=== PATIENT | male | born 1970 | race Caucasian/White ===

== ENCOUNTER 2020-05-13 00:42 | Emergency (ER) | payer OTHER, SELFPAY ==
[2020-05-13 00:54] VITALS: PULSE 64; RESP 16; TEMP 36.6; O2SAT 96; BMI 41.5
--- NOTE | 2020-05-13 01:11 | W.ED.NECK ---
HPI - Neck Pain/Injury General: Chief Complaint: Neck Pain/Injury Stated Complaint: high bp; left arm pain Time Seen by Provider: 05/13/20 00:51 History of Present Illness: HPI Narrative: Patient is a 49-year-old male who comes to the ED with high blood pressure and left shoulder pain. Patient has a past medical history of hypertension and hypercholesteremia. Patient says 3 days ago he started having some pain that started in the upper back that was radiating into his left shoulder and down into his left upper arm. Patient says he woke up with this pain and it has since progressed. He has never had any pain like this in the past. He has taken a dose of ibuprofen yesterday for the shoulder pain with minimal improvement. Patient says when he places his left arm above his head he upper back and left shoulder pain improves. He also describes having some mild midsternal pleuritic chest pain today. Denies any injury, trauma to cause onset of pain. Patient checked his blood pressure at home and it was elevated. He was concerned that this could be a sign of some cardiac cause so he decided to come to the ED to be evaluated. Denies any nausea/vomiting, abdominal pain, bladder or bowel symptoms. Associated symptoms: Denies headache(s) or nausea Review of Systems Const: Denies: fever(s), chills or fatigue Eyes: Denies: change in vision or eye discomfort ENMT: Denies: throat pain, odynophagia, nasal discharge or nasal congestion Card: Reports: chest pain (pleuritic); Denies: palpitations, edema, swelling of feet/ankles, dyspnea on exertion or orthopnea Resp: Denies: dyspnea, productive cough or non-productive cough GI: Denies: abdominal pain, nausea, vomiting, diarrhea, constipation or hematochezia : Denies: flank pain, difficulty urinating, dysuria or hematuria Musc: Reports: back pain (Left side of upper back) and extremity pain (Pain into the left shoulder and down into left upper arm.); Denies: neck pain or extremity swelling Skin/Breast: Denies: rash or new lesions Neuro: Denies: headache(s), numbness in extremities or weakness in extremities Physical Exam Const: COMMON NORMALS: no acute distress, patient oriented x3, healthy appearing and alert GENERAL APPEARANCE: cooperative and comfortable NUTRITIONAL APPEARANCE: overweight HENMT: COMMON NORMALS: normocephalic HEAD & SCALP: normocephalic MOUTH: Normal oral and palatal mucosa present THROAT: posterior oropharynx normal and uvula midline Eye: COMMON NORMALS: Equal, round and reactive pupils present PUPIL: Yes Equal, round and reactive pupils present Neck/C-Spine: COMMON NORMALS: supple GENERAL: Yes normal visual inspection Resp: COMMON NORMALS: normal respiratory effort, No retractions, No use of accessory muscles and clear to auscultation bilaterally EFFORT & INSPECTION: Yes able to speak in complete sentences AUSCULTATION: clear to auscultation bilaterally Cardio: COMMON NORMALS: regular rate, regular rhythm, S1 normal heart sound present, S2 normal heart sound present, No gallops present (Cardio), No clicks present (Cardio), No murmurs present (Cardio) and Peripheral pulses 2+ throughout RATE: regular rate RHYTHM: regular rhythm HEART SOUNDS: S1 normal heart sound present and S2 normal heart sound present PERIPHERAL PULSES: Peripheral pulses 2+ throughout GI: COMMON NORMALS: Normal to inspection, nondistended, normoactive bowel sounds present, Soft to palpation, non-tender and no masses PALPATION: Yes Soft to palpation : COMMON NORMALS: Yes no CVA tenderness BLADDER/KIDNEY EXAM: Yes no CVA tenderness Back/Pelvis: COMMON NORMALS: no CVA tenderness THORACIC SPINE/UPPER BACK: Yes paraspinal muscle tenderness Extremity: COMMON NORMALS: normal to inspection, capillary refill normal and no pedal edema Neuro: COMMON NORMALS: patient oriented x3 and moves all extremities SENSORIUM/ORIENTATION: Yes alert Skin: COMMON NORMALS: no rashes or lesions noted GENERAL SKIN EXAM: no rashes or lesions noted and dry skin Course ED course: Heart score-2 (low risk) Vital Signs: Vital signs: Vital Signs Temperature 97.9 F 05/13/20 00:54 Pulse Rate 64 05/13/20 02:24 Respiratory Rate 16 05/13/20 02:24 Blood Pressure 142/99 05/13/20 02:24 Pulse Oximetry 94 05/13/20 02:24 MDM - Neck Pain/Injury MDM Narrative: Medical decision making narrative: Patient is a 49-year-old male comes to the ED with some mild chest pain, elevated BP and upper back pain that radiates to left shoulder that started approximately 3 days ago. Past medical history of hypertension and hypercholesteremia. Patient showing no signs of acute distress and is sitting comfortably on exam bed monitor the room. initial BP 123/101 and last BP 142/99 CBC, CMP were unremarkable. Baseline troponin was 11 and EKG was sinus bradycardia, 57 bpm, no ST segment elevation or depression seen. HEART Score 2 (low risk). Patient was given Toradol and Norflex while here in the ED and his symptoms improved. Patient was given a prescription for Robaxin and told to take ibuprofen to help with pain and inflammation. Patient diagnosed with upper back muscle strain and discharged. He was told to follow-up with PCP in 7 to 10 days for reevaluation. Return to ED if symptoms worsen. Patient understood and agreed with plan. Lab Data: Attestation: I reviewed the patient's lab results. Labs: Lab Results 05/13/20 05/13/20 05/13/20 Range/Units 01:23 01:23 01:23 WBC 7.6 (4.0-10.0) 10^3/ uL RBC 5.17 (4.1-5.3) 10^6/u L Hgb 15.2 (11.7-16.6) g/dL Hct 46.4 (42.0-52.0) % MCV 89.7 (80-94) fL MCH 29.4 (28.0-34.0) pg MCHC 32.8 (30.0-36.0) g/dL RDW 12.5 (12.1-15.1) % Plt Count 314 (130-400) 10^3/c mm MPV 9.6 (7.4-10.4) fL Neut % (Auto) 57.8 % Lymph % (Auto) 23.8 % [place] % (Auto) 8.8 % Eos % (Auto) 8.7 % Baso % (Auto) 0.8 % Neut # (Auto) 4.40 (1.8-7.7) 10^3/u L Lymph # (Auto) 1.8 (0.8-4.8) 10^3/u L [place] # (Auto) 0.7 (0.2-0.9) 10^3/u L Eos # (Auto) 0.7 (0.0-0.8) 10^3/u L Baso # (Auto) 0.1 (0.0-0.1) 10^3/u L Nucleated RBC % (a uto) 0 % Nucleated RBCs # 0.0 /100WBC Sodium 139 (136-145) mmol/L Potassium 4.0 (3.5-5.1) mmol/L Chloride 103 (98-107) mmol/L Carbon Dioxide 27 (22-29) mmol/L Anion Gap 13.0 (5-19) BUN 11 (6-20) mg/dL Creatinine 0.9 (0.7-1.2) mg/dL GFR Calculation 90.4 (90-130) mL/min Glucose 96 (65-115) mg/dL Calculated Osmolal ity 284 L (285-295) mOsm/k g Calcium 9.1 (8.5-10.5) mg/dL Total Bilirubin 0.5 (0.15-1.2) mg/dL AST 27 (0-40) U/L ALT 42 H (0-41) U/L Alkaline Phosphata se 53 (40-130) IU/L Troponin T Baselin e 11 (0-15) ng/L Total Protein 7.0 (6.6-8.7) g/dL Albumin 4.4 (3.5-5.2) g/dL Globulin 2.6 (1.3-4.6) g/dL Imaging Data^: CXR: Attestation: I personally reviewed and interpreted this imaging study as follows: My impression: No acute findings. Pending final radiology report EKG Data^: EKG 1: Attestation: I personally reviewed and interpreted this EKG as follows: EKG interpretation date: 05/13/20 Interpretation: Sinus bradycardia, 57 bpm, no ST segment elevation or depression seen, P waves present. Discharge Plan Discharge Patient Disposition: Home, Self-Care Clinical Impression: Muscle strain of left upper back Qualifiers: Encounter type: initial encounter Qualified Code(s): S29.012A - Strain of muscle and tendon of back wall of thorax, initial encounter Condition: Stable Prescriptions: New Robaxin-750 750 mg tablet 750 mg PO Q8H Qty: 20 RF: 0 Discharge Orders: Discharge Order (Routine); Ordered 05/13/20 Ordered By: Ronaldo Kim Referrals: Juan Carlos Montaño, [Primary Care Provider] - Discharge Diet: Regular Discharge Activity: Increase activity as tolerated Patient Instructions: Muscle Strain (ED), Back Pain (ED) Activity Restrictions/Additional Instructions: Follow-up with medical provider as directed in 7 days. Take medications as prescribed. You can take ibuprofen up to 800 mg dose 3 times a day. Remember Robaxin as a muscle relaxer and can cause some drowsiness so use with caution during the day. Return to the ER or your medical provider if condition worsens. Please read and understand discharge instructions. If any questions, please ask. Discharge Date/Time: 05/13/20 02:29 Coding Level of Care Code ED [employer] for Khalida Fwadilia Exam Comprehensive
--- NOTE | 2020-05-13 01:12 | ECG_ITS ---
[facility] Test Date: 2020-05-13 Pat Name: Dalton Aden Department: Room: Gender: Male [employer]: : 1970 Requested By: Ronaldo Kim Order Number: [id number] Cm MD: Ron Malone M.D. Measurements Intervals [place] Rate: 57 P: 43 MA: 188 QRS: 43 QRSD: 108 T: 46 QT: 410 QTc: 400 Interpretive Statements SINUS BRADYCARDIA No previous ECG available for comparison Electronically Signed On 05-14-2020 16:23:21 CDT by Ron Malone M.D. [id number]
--- NOTE | 2020-05-13 01:12 | XR_ITS ---
WS: [id number] PORTABLE CHEST HISTORY: cp COMPARISON: None available. Very minimal subsegmental areas of scarring in the mid and lower LEFT lung. No pneumonia. Normal vasc ulature. No pleural effusion or pneumothorax. Cardiac size: Normal. Mediastinum/Aorta: Normal mediastinum. No osseous abnormality seen. XR/XR chest 1V portable [id number] IMPRESSION: Minimal areas of scarring or chronic atelectasis in the midlung.
[2020-05-13 01:24] VITALS: BP 123/101; PULSE 60; RESP 18; O2SAT 99
[2020-05-13 01:28] LABS: Basophils # 0.1 10^3/uL (0.0-0.1); Basophils % 0.8 %; Eosinophils # 0.7 10^3/uL (0.0-0.8); Eosinophils % 8.7 %; Hematocrit 46.4 % (42.0-52.0); Hemoglobin 15.2 g/dL (11.7-16.6); Lymphocytes # 1.8 10^3/uL (0.8-4.8); Lymphocytes % 23.8 %; Mean Corpuscular HGB Conc 32.8 g/dL (30.0-36.0); Mean Corpuscular Hemoglobin 29.4 pg (28.0-34.0); Mean Corpuscular Volume 89.7 fL (80-94); Mean Platelet Volume 9.6 fL (7.4-10.4); Monocytes # 0.7 10^3/uL (0.2-0.9); Monocytes % 8.8 %; Neutrophils % 57.8 %; Nucleated Red Blood Cells % 0 %; Platelet Count 314 10^3/cmm (130-400); Red Blood Count 5.17 10^6/uL (4.1-5.3); Red Cell Distribution Width 12.5 % (12.1-15.1); White Blood Count 7.6 10^3/uL (4.0-10.0)
[2020-05-13 01:44] LABS: Alanine Aminotransferase 42 U/L (0-41); Albumin Level 4.4 g/dL (3.5-5.2); Alkaline Phosphatase 53 IU/L (40-130); Aspartate Amino Transferase 27 U/L (0-40); Blood Urea Nitrogen 11 mg/dL (6-20); Calcium 9.1 mg/dL (8.5-10.5); Carbon Dioxide 27 mmol/L (22-29); Chloride 103 mmol/L (98-107); Globulin 2.6 g/dL (1.3-4.6); Glomerular Filtration Rate 90.4 mL/min (90-130); Glucose 96 mg/dL (65-115); Osmolality Calculated 284 mOsm/kg (285-295); Sodium 139 mmol/L (136-145); Total Bilirubin 0.5 mg/dL (0.15-1.2)
[2020-05-13 01:45] LABS: Troponin(5th) Baseline 11 ng/L (0-15)
[2020-05-13] MEDS: ketorolac 30 mg/mL INJ IVP (01:55)
[2020-05-13] MEDS: orphenadrine 30 mg/mL Inj 2 mL 60 MG IVP (01:57)
[2020-05-13 02:24] VITALS: BP 142/99; PULSE 64; RESP 16; O2SAT 94
== END 2020-05-13 02:29 | disposition home or self-care (01) ==
PROVIDERS: Emergency Provider Physician Assistant; PCP Electrodiagnostic Medicine
DX: S29.012A Strain of muscle and tendon of back wall of thorax, initial encounter (principal); X58.XXXA Exposure to other specified factors, initial encounter
CPT/HCPCS: 12345; 71045; 80053; 84484; 85025; 93005; 96374; 96375; 99283; 99284; J1885; J2360